=== PATIENT | female | born 1985 | race African-American/Black ===

== ENCOUNTER 2016-08-07 08:59 | Emergency (ER) | payer BC ==
[~2016-08-07 08:59] MED LIST: ALEVE220 M1; FLEXERIL10 M1 PO; IBUPROFEN PO; IBUPROFEN800 MG PO; PHENERGAN PR; PROTONIX
== END 2016-08-07 09:10 | disposition home or self-care (01) ==
LOC: SED 08:59
DX: B34.9 Viral infection, unspecified (principal); F17.200 Nicotine dependence, unspecified, uncomplicated
CPT/HCPCS: 99282